=== PATIENT | female | born 1970 | race Caucasian/White ===

== ENCOUNTER → 2017-04-17 | Outpatient (REF) | payer OTHER | LOC: M LAB REF 09:25 | PROVIDERS: ATTEND Physician Assistant | DX: J02.9 Acute pharyngitis, unspecified (principal) ==

== ENCOUNTER → 2017-07-23 | Outpatient (CLI) | payer OTHER ==
--- NOTE | 2017-07-23 13:51 | REPMRS ---
Patient History The patient states she has not had a clinical breast exam in over a year. Patient is nulliparous. Family history of unknown cancer in father at age 62 and ovarian cancer in paternal aunt at age 50 or over. Digital Mammo Screening Bilat: July 23, 2017 - Exam #: [id number] Bilateral CC and MLO view(s) were taken. Technologist: Loyda Bunch, Technologist Prior study comparison: January 17, 2016, bilateral digital mammo screening bilat performed at [facility]. May 11, 2013, bilateral digital mammo screening bilat performed at [facility]. October 28, 2011, left breast digital mammo diagnostic unilateral performed at [facility]. FINDINGS: There are scattered fibroglandular densities. There has been no change in the appearance of the mammogram from the prior studies. There is a mild amount of scattered fibroglandular density which is fairly symmetric. There is no interval development of dominant mass, architectural distortion, or clustered microcalcification suggestive of malignancy. ASSESSMENT: BI-RADS/ACR category 1 mammogram. Negative. Recommendation Routine screening mammogram in 1 year (for women over age 40). This mammogram was interpreted with the aid of an FDA-approved computer-aided dectection system. Electronically Signed By: Franco Valera MD 07/23/17 [id number]
== END ==
LOC: M RAD 12:44
PROVIDERS: ATTEND Nurse Practitioner Adult Health
DX: Z12.31 Encounter for screening mammogram for malignant neoplasm of breast (principal)

== ENCOUNTER → 2019-10-12 | Outpatient (CLI) | payer OTHER ==
--- NOTE | 2019-10-12 12:16 | REP ---
Clinical: Pain with recent trauma . Technique: Internal rotation, external rotation, and Y view left shoulder . Findings: No acute fracture or dislocation. The acromioclavicular and glenohumeral joints are intact. No periarticular calcifications or degenerative changes are appreciated. Sub acromial space is normal. Surrounding soft tissues are unremarkable. Impression: Normal left shoulder radiographs. Electronically Signed by David Roberson MD 10/12/2019 09:05 A
== END ==
LOC: M WUC 08:49
PROVIDERS: ATTEND Physician Assistant
DX: M25.512 Pain in left shoulder (principal); M79.602 Pain in left arm

== ENCOUNTER → 2021-04-21 | Outpatient (CLI) | payer BC, OTHER ==
[~2021-04-21] MED LIST: ATOR1TAB19; D32000CA PO; XARE10TA
== END ==
LOC: M LABSMTC 08:42
PROVIDERS: ATTEND Anesthesiology
DX: Z20.828 Contact with and (suspected) exposure to other viral communicable diseases (principal); Z11.59 Encounter for screening for other viral diseases

== ENCOUNTER 2021-04-26 08:07 | Day surgery (SDC) | payer BC, OTHER ==
[~2021-04-26] VITALS: Ht 160 cm; Wt 98.9 kg
[~2021-04-26 08:07] MED LIST changes: +NS 1,000 ML IV ONE
[2021-04-26] MEDS ORDERED: propofoL 500 MG/50 ML VIAL As Ordered ONE (10:08)
[2021-04-26] MEDS ORDERED: fentaNYL 100 MCG/2 ML INJECTION (J3010) As Ordered ONE (10:08)
[2021-04-26] MEDS ORDERED: LIDOCAINE 2% 100MG/5ML SDV (FOR ANES.) As Ordered ONE (10:08)
--- NOTE | 2021-04-26 10:16 | ROOR ---
Patient Name: Haley Villagran Procedure Date: 04/26/2021 10:03 AM Date of : 1970 Age: 51 Room: [facility] Gender: Female Note Status: Finalized Procedure: Upper GI endoscopy Indications: Heartburn Providers: Kory Vargas MD Referring MD: Cathy Varghese NP Requesting Provider: Medicines: Monitored Anesthesia Care Complications: No immediate complications. Procedure: Pre-Anesthesia Assessment: - The heart rate, respiratory rate, oxygen saturations, blood pressure, adequacy of pulmonary ventilation, and response to care were monitored throughout the procedure. The Endoscope was introduced through the mouth, and advanced to the second part of duodenum. The upper GI endoscopy was accomplished without difficulty. The patient tolerated the procedure well. Findings: A few medium-sized blebs were found in the lower third of the esophagus. The exam was otherwise without abnormality. Impression: - A few prominent venous channels/blebs found in the distal esophagus. - The examination was otherwise normal. - No specimens collected. Recommendation: - Perform an abdominal ultrasound to evaluate for liver disease at appointment to be scheduled. - My office will call you in the next few days to set you up for this study/exam. Procedure Code(s): --- Professional --- 57754, Esophagogastroduodenoscopy, flexible, transoral; diagnostic, including collection of specimen(s) by brushing or washing, when performed (separate procedure) Diagnosis Code(s): --- Professional --- R12, Heartburn K22.8, Other specified diseases of esophagus CPT copyright 2019 [employer]. All rights reserved. The codes documented in this report are preliminary and upon geophysical data technician review may be revised to meet current compliance requirements. Kory Vargas MD Kory Vargas MD 04/26/2021 10:16:19 AM Electronically signed by Kory Vargas MD Number of Addenda: 0 Note Initiated On: 04/26/2021 10:03 AM Estimated Blood Loss: Estimated blood loss: none.
--- NOTE | 2021-04-26 10:34 | ROOR ---
Patient Name: Haley Villagran Procedure Date: 04/26/2021 10:04 AM Date of : 1970 Age: 51 Room: [facility] Gender: Female Note Status: Finalized Procedure: Colonoscopy Indications: Screening for colorectal malignant neoplasm Providers: Kory Vargas MD Referring MD: Cathy Varghese NP Requesting Provider: Medicines: Monitored Anesthesia Care Complications: No immediate complications. Procedure: Pre-Anesthesia Assessment: - The heart rate, respiratory rate, oxygen saturations, blood pressure, adequacy of pulmonary ventilation, and response to care were monitored throughout the procedure. The Colonoscope was introduced through the anus and advanced to 10 cm into the ileum. The colonoscopy was performed without difficulty. The patient tolerated the procedure well. The quality of the bowel preparation was good. Findings: The perianal and digital rectal examinations were normal. Mild sigmoid diverticulosis and small internal hemorrhoids. Retroflexion in the right colon was performed. The exam was otherwise normal throughout the examined colon. The terminal ileum appeared normal. Impression: - Minimal sigmoid diverticulosis and small internal hemorrhoids. - The colon is otherwise normal. - The examined portion of the ileum was normal. - No specimens collected. Recommendation: - Repeat colonoscopy in 10 years for screening purposes. - Resume Xarelto (rivaroxaban) at prior dose today. Procedure Code(s): --- Professional --- 91173, Colonoscopy, flexible; diagnostic, including collection of specimen(s) by brushing or washing, when performed (separate procedure) Diagnosis Code(s): --- Professional --- Z12.11, Encounter for screening for malignant neoplasm of colon CPT copyright 2019 [employer]. All rights reserved. The codes documented in this report are preliminary and upon feeder/folder review may be revised to meet current compliance requirements. Kory Vargas MD Kory Vargas MD 04/26/2021 10:34:08 AM Electronically signed by Kory Vargas MD Number of Addenda: 0 Note Initiated On: 04/26/2021 10:04 AM Estimated Blood Loss: Estimated blood loss: none.
[2021-04-26 10:50] VITALS: BP 112/65
== END 2021-04-26 11:43 | disposition home or self-care (01) ==
LOC: M OPP 08:07
PROVIDERS: ATTEND Internal Medicine Gastroenterology
DX: Z12.11 Encounter for screening for malignant neoplasm of colon (principal); K57.30 Diverticulosis of large intestine without perforation or abscess without bleeding; K64.8 Other hemorrhoids; R12 Heartburn; K22.8 Other specified diseases of esophagus; Z79.899 Other long term (current) drug therapy; Z88.2 Allergy status to sulfonamides; Z91.018 Allergy to other foods; Z91.048 Other nonmedicinal substance allergy status; Z87.891 Personal history of nicotine dependence
CPT/HCPCS: 43235; 45378; J3010

== ENCOUNTER → 2021-05-09 | Outpatient (CLI) | payer BC, OTHER ==
[~2021-05-09] MED LIST changes: -NS 1,000 ML IV ONE
--- NOTE | 2021-05-09 08:58 | REP ---
INDICATION: ESOPHOGEAL VARICES. COMPARISON: None. TECHNIQUE: Real-time sonographic evaluation of ABDOMEN PERFORMED, WITH DUPLEX DOPPLER EVALUATION OF PORTAL VASCULATURE. FINDINGS: The gallbladder demonstrates no evidence of intraluminal sludge or calculi, wall thickening or pericholecystic fluid. There is no intrahepatic or extrahepatic biliary dilatation, common bile duct measures 4 mm in maximum diameter. The liver is normal in size and demonstrates homogeneous echotexture with no gross mass. Pancreas is not seen due to overlying bowel gas. Spleen is normal in size with no intrinsic abnormality, measuring 9.3 cm in length. There is no evidence of hydronephrosis, cyst, mass, or calculus in either kidney. The right kidney measures 10.2 x 5.8 x 4.5 cm. Left renal dimensions are 10.3 x 5.1 x 5.7 cm. The abdominal aorta is normal in caliber with no aneurysm. No free fluid is seen. The main portal vein measures 10 mm in diameter. The splenic vein and portal veins demonstrate normal direction of flow, with normal flow velocities and waveforms. The central splenic vein is not visualized due to overlying bowel gas. There is no portal vein thrombosis. Hepatic veins are patent with no thrombus. Hepatic venous waveforms suggest possible tricuspid regurgitation. Patent main hepatic artery demonstrates peak systolic velocity of 50.8 centimeters/second. IMPRESSION: Negative abdominal ultrasound. Portal vasculature demonstrates normal direction of flow with no thrombosis. No evidence of hepatic vein thrombosis. No Doppler evidence of portal hypertension. Hepatic venous waveforms suggest possible tricuspid regurgitation. <Electronically signed by Obi Reaves > 05/09/21 [id number]
== END ==
LOC: M RAD 07:04
PROVIDERS: ATTEND Internal Medicine Gastroenterology
DX: I85.00 Esophageal varices without bleeding (principal)

== ENCOUNTER → 2021-10-31 | Outpatient (CLI) | payer BC, OTHER ==
--- NOTE | 2021-10-31 13:29 | REP ---
INDICATION: SCREEN MAMMO. COMPARISON: Multiple. There are no prior DBT images for comparison. TECHNIQUE: Digital screening mammography was carried out bilaterally in the CC and MLO projections using both 2D and 3D modalities and compared to the prior exams. By history, the patient has no complaints of a palpable abnormality or other significant breast complaints. FINDINGS: The breasts are unchanged in size and shape. Once again, scattered dense heterogenous fibroglandular elements are seen bilaterally. In the upper aspect of the right breast near the 1 o'clock position there is a potential asymmetric density which is seen best on DBT imaging. In the left breast centrally there is a small potential lizzy density. No other suspicious features are seen in either breast. There are no suspicious calcifications. There is no skin thickening or nipple retraction. The Volpara volumetric breast density pattern is b. IMPRESSION: BIRADS/ACR category 0 mammogram. Findings in each breast as described above and for which diagnostic digital DBT spot compression views are recommended in the CC and MLO projections along with diagnostic ultrasonography if necessary. This patient's Tyrer-Cuzick lifetime breast cancer risk assessment score is 12.1%. This mammogram was interpreted with the aid of an FDA-approved computer-aided detection system. The patient states she had a clinical breast exam in April 2021. The patient letter being requested is M0. RECOMMENDATION: As above <Electronically signed by Osvaldo Landrum > 10/31/21 [id number]
== END ==
LOC: M WHC 07:07
PROVIDERS: ATTEND Nurse Practitioner Adult Health
DX: R92.2 Inconclusive mammogram (principal)

== ENCOUNTER → 2021-11-13 | Outpatient (CLI) | payer BC, OTHER ==
--- NOTE | 2021-11-13 17:04 | REP ---
INDICATION: BILATERAL BREAST ADD VIEWS. COMPARISON: 10/31/2021, 07/23/2017 as well as other prior exams. TECHNIQUE: Bilateral spot compression views with tomosynthesis, left breast ultrasound FINDINGS: Today's additional views show that the density on the right compresses out to an unchanged appearance compared to other prior exams. A 3 mm smoothly marginated nodule is seen in the posterior central left breast directly behind the nipple, measuring 3 mm in diameter. Focused left breast ultrasound performed directly behind the nipple. There is a 3 mm hypoechoic nodule present which probably represents a tiny cyst. It is too small to accurately characterize. This corresponds to the mammographic abnormality. IMPRESSION: BIRADS/ACR category 3, probably benign. No persistent abnormality in the right breast. In the left breast there are is a 3 mm nodule seen both mammographically and sonographically which probably represents a cyst. Recommend follow-up ultrasound left breast in 6 months. This mammogram was interpreted with the aid of an FDA-approved computer-aided detection system. The patient letter being requested is M3. RECOMMENDATION: Recommend follow-up ultrasound left breast in 6 months. <Electronically signed by Obi Reaves > 11/13/21 [id number]
== END ==
LOC: M WHC 14:46
PROVIDERS: ATTEND Nurse Practitioner Adult Health
DX: R92.2 Inconclusive mammogram (principal)
CPT/HCPCS: 76642; 77066; G0279

== ENCOUNTER → 2022-06-09 | Outpatient (CLI) | payer BC, OTHER | LOC: M WHC 14:49 | PROVIDERS: ATTEND Nurse Practitioner Adult Health | DX: Z12.31 Encounter for screening mammogram for malignant neoplasm of breast (principal) | CPT/HCPCS: 77065; G0279 ==

== ENCOUNTER → 2023-02-10 | Outpatient (CLI) | payer BC, OTHER | LOC: M WUC 12:29 | PROVIDERS: ATTEND Physician Assistant | DX: S63.511A Sprain of carpal joint of right wrist, initial encounter (principal) ==

== ENCOUNTER → 2025-09-19 | Outpatient (CLI) | payer BC, OTHER | LOC: M SOG 07:31 | PROVIDERS: ATTEND Physician Assistant | DX: M79.645 Pain in left finger(s) (principal) ==